=== PATIENT | male | born 1990 | race Caucasian/White ===

== ENCOUNTER 2016-12-31 17:57 | Emergency (ER) | payer OTHER ==
[~2016-12-31] VITALS: Wt 97.5 kg
[~2016-12-31 17:57] MED LIST: MOTRIN400 MG PO; MOTRIN600 MG PO
[2016-12-31 18:12] VITALS: BP 153/75
== END 2016-12-31 20:21 | disposition home or self-care (01) ==
LOC: ED 17:57
DX: S62.304A Unspecified fracture of fourth metacarpal bone, right hand, initial encounter for closed fracture (principal); W18.30XA Fall on same level, unspecified, initial encounter; Y93.89 Activity, other specified; Y92.9 Unspecified place or not applicable; Y99.9 Unspecified external cause status

== ENCOUNTER → 2017-01-03 | Outpatient (CLI) | payer OTHER | END | disposition home or self-care (01) | LOC: ORTHO 02:50 | DX: S62.304D Unspecified fracture of fourth metacarpal bone, right hand, subsequent encounter for fracture with routine healing (principal); X58.XXXD Exposure to other specified factors, subsequent encounter ==

== ENCOUNTER → 2017-02-04 | Outpatient (CLI) | payer OTHER | END | disposition home or self-care (01) | LOC: ORTHO 02:02 | DX: S62.304D Unspecified fracture of fourth metacarpal bone, right hand, subsequent encounter for fracture with routine healing (principal); X58.XXXD Exposure to other specified factors, subsequent encounter ==

== ENCOUNTER 2018-05-15 09:30 | Emergency (ER) | payer OTHER ==
[~2018-05-15] VITALS: Ht 175.2 cm; Wt 102.1 kg
[2018-05-15 09:32] VITALS: BP 142/87
[2018-05-15 10:06] LABS: BASO % 0.2 % (0.0-1.0); EOS % 0.1 % (1.0-4.0); HEMATOCRIT 39.6 % (42.0-52.0); HEMOGLOBIN 14.1 g/dl (14.0-18.0); LYMPH % 10.7 % (27.0-41.0); MEAN CELL VOLUME 88.6 fl (80.0-94.0); MEAN CORPUSCULAR HGB 31.5 pg (27.0-31.0); MEAN CORPUSCULAR HGB CONC 35.6 g/dl (33.0-37.0); MEAN PLATELET VOLUME 10.1 fl (9.6-12.3); MONO # 1.3 10*3/uL (0.1-1.0); MONO % 13.8 % (3.0-9.0); PLATELET COUNT AUTOMATED 143 10*3/uL (130-400); RED BLOOD COUNT 4.47 10*6/uL (4.50-5.90); RED CELL DISTRI WIDTH 11.9 % (0-14.5); WHITE BLOOD COUNT 9.4 10*3/uL (4.8-10.8)
[2018-05-15 10:17] LABS: BUN 12 mg/dl (7-24); CHLORIDE 102 mmol/L (98-107); CREATININE 1.41 mg/dL (0.70-1.30); POTASSIUM 3.5 mmol/L (3.5-5.1); SODIUM 138 mmol/L (136-145)
[2018-05-15] MEDS ORDERED: AMOXICILLIN500 M3 PO (11:37)
== END 2018-05-15 12:57 ==
LOC: ED 09:30
PROVIDERS: Nurse Practitioner Family
DX: L04.0 Acute lymphadenitis of face, head and neck (principal); J02.9 Acute pharyngitis, unspecified; R13.10 Dysphagia, unspecified; Z91.040 Latex allergy status

== ENCOUNTER 2018-10-05 12:13 | Emergency (ER) | payer OTHER ==
[~2018-10-05] VITALS: Ht 167.6 cm; Wt 99.8 kg
[~2018-10-05 12:13] MED LIST changes: -LISINOPRIL10 M1 PO
[2018-10-05] MEDS ORDERED: LISINOPRIL10 M1 PO (12:23)
[2018-10-05 12:44] LABS: BASO % 0.6 % (0.0-1.0); EOS # 0.2 10*3/uL (0.0-0.4); EOS % 3.9 % (1.0-4.0); HEMATOCRIT 44.9 % (42.0-52.0); HEMOGLOBIN 16.1 g/dl (14.0-18.0); LYMPH # 2.1 10*3/uL (1.3-4.4); LYMPH % 40.2 % (27.0-41.0); MEAN CELL VOLUME 88.6 fl (80.0-94.0); MEAN CORPUSCULAR HGB 31.8 pg (27.0-31.0); MEAN CORPUSCULAR HGB CONC 35.9 g/dl (33.0-37.0); MONO # 0.5 10*3/uL (0.1-1.0); MONO % 9.4 % (3.0-9.0); NEUT # 2.4 10*3/uL (2.3-7.9); NEUT % 45.7 % (47.0-73.0); PLATELET COUNT AUTOMATED 194 10*3/uL (130-400); RED BLOOD COUNT 5.07 10*6/uL (4.50-5.90); RED CELL DISTRI WIDTH 12.1 % (0-14.5); WHITE BLOOD COUNT 5.3 10*3/uL (4.8-10.8)
[2018-10-05 13:08] LABS: BUN 20 mg/dl (7-24); CHLORIDE 107 mmol/L (98-107); CREATININE 1.23 mg/dL (0.70-1.30); POTASSIUM 3.9 mmol/L (3.5-5.1); SODIUM 141 mmol/L (136-145)
[2018-10-05 13:09] VITALS: BP 130/70
[2018-10-05 13:11] LABS: TROPONIN I < 0.015 ng/ml (<0.045)
== END 2018-10-05 13:29 | disposition home or self-care (01) ==
LOC: ED 12:13
PROVIDERS: Emergency Medicine
DX: R07.89 Other chest pain (principal); I10 Essential (primary) hypertension; Z79.899 Other long term (current) drug therapy; Z91.040 Latex allergy status

== ENCOUNTER → 2018-10-05 | Outpatient (CLI) | payer OTHER ==
[~2018-10-05] MED LIST changes: +AMOXICILLIN500 M3 PO; +LISINOPRIL10 M1 PO
[2018-10-05 13:18] LABS: ALBUMIN 4.1 gm/dl (3.1-4.5); THYROXINE (T4) TOTAL 10.9 ug/dl (4.5-12.1); TOTAL PROTEIN 7.7 gm/dL (6.4-8.2)
[2018-10-05 13:26] LABS: THYROID STIM HORMONE (HS) 1.29 uIU/ml (0.358-4.75)
[2018-10-08 15:07] LABS: CREATININE, RANDOM URINE 191.9 mg/dL (Not Estab.)
[2018-10-09 10:08] LABS: METANEPH-CREAT RATIO 0.2 (0.0-1.0)
== END | disposition home or self-care (01) ==
LOC: LAB 12:31
PROVIDERS: Pediatrics
DX: I10 Essential (primary) hypertension (principal)

== ENCOUNTER 2022-06-05 19:28 | Emergency (ER) | payer SELFPAY ==
[~2022-06-05] VITALS: Ht 170.1 cm; Wt 77.1 kg
[~2022-06-05 19:28] MED LIST changes: +LISINOPRIL10 M1 PO
[2022-06-05 21:15] LABS: BASO % 0.4 % (0.0-1.0); EOS # 0.2 10*3/uL (0.0-0.4); EOS % 2.7 % (1.0-4.0); HEMATOCRIT 39.4 % (42.0-52.0); LYMPH # 2.1 10*3/uL (1.3-4.4); LYMPH % 25.7 % (27.0-41.0); MEAN CELL VOLUME 90.2 fl (80.0-94.0); MEAN CORPUSCULAR HGB 31.6 pg (27.0-31.0); MONO # 0.6 10*3/uL (0.1-1.0); MONO % 6.7 % (3.0-9.0); NEUT # 5.3 10*3/uL (2.3-7.9); NEUT % 64.4 % (47.0-73.0); PLATELET COUNT AUTOMATED 233 10*3/uL (130-400); RED BLOOD COUNT 4.37 10*6/uL (4.50-5.90); WHITE BLOOD COUNT 8.3 10*3/uL (4.8-10.8)
[2022-06-05 21:32] VITALS: BP 115/49
[2022-06-05 21:33] LABS: ACT PARTIAL THROMBO TIME 27.2 SECONDS (20.0-32.1); ALKALINE PHOSPHATASE 42 U/L (45-117); BUN 14 mg/dl (7-24); CHLORIDE 106 mmol/L (98-107); CREATININE 0.83 mg/dL (0.70-1.30); LIPASE 194 U/L (73-393); POTASSIUM 4.4 mmol/L (3.5-5.1); SGOT/AST 14 IU/L (3-35); SGPT/ALT 22 U/L (12-78); SODIUM 138 mmol/L (136-145); TOTAL PROTEIN 6.7 gm/dL (6.4-8.2)
== END 2022-06-06 00:59 | disposition home or self-care (01) ==
LOC: ED 19:28
PROVIDERS: Family Medicine
DX: R07.89 Other chest pain (principal); R51.9 Headache, unspecified; R53.83 Other fatigue; I10 Essential (primary) hypertension

== ENCOUNTER 2022-07-03 17:14 | Emergency (ER) | payer SELFPAY ==
[~2022-07-03] VITALS: Wt 75.3 kg
[2022-07-03 17:41] VITALS: BP 149/75
[2022-07-04] MEDS ORDERED: TAMIFLU 75MG CA75 MG PO (00:49)
== END 2022-07-04 00:45 | disposition home or self-care (01) ==
LOC: ED 17:14
DX: J10.1 Influenza due to other identified influenza virus with other respiratory manifestations (principal); Z20.822 Contact with and (suspected) exposure to COVID-19; Z79.899 Other long term (current) drug therapy

== ENCOUNTER 2022-11-29 16:23 | Emergency (ER) | payer SELFPAY ==
[~2022-11-29] VITALS: Ht 170.1 cm; Wt 80.3 kg
[~2022-11-29 16:23] MED LIST changes: +TAMIFLU 75MG CA75 MG PO
[2022-11-29 16:43] VITALS: BP 138/66
[2022-11-29] MEDS ORDERED: ONDANSETRON4 MG SL (16:46)
[2022-11-29] MEDS ORDERED: TYLENOL EXTRA500 MG PO (16:46)
[2022-11-29] MEDS ORDERED: DICYCLOMINE HCL10 MG PO (16:46)
== END 2022-11-29 17:04 | disposition home or self-care (01) ==
LOC: ED 16:23
DX: A08.4 Viral intestinal infection, unspecified (principal); Z79.899 Other long term (current) drug therapy

== ENCOUNTER 2023-10-16 17:06 | Emergency (ER) | payer OTHER ==
[~2023-10-16] VITALS: Wt 79.4 kg
[~2023-10-16 17:06] MED LIST changes: +DICYCLOMINE HCL10 MG PO; +ONDANSETRON4 MG SL; +TYLENOL EXTRA500 MG PO
[2023-10-16 17:23] VITALS: BP 138/80
[2023-10-16] MEDS ORDERED: Motrin,Rufen800 MG PO (17:34)
[2023-10-16] MEDS ORDERED: PENICILLIN VK500 MG PO (17:34)
[2023-10-16] MEDS ORDERED: Acetaminophen/Hydrocodone 5 MG/325 MG TABLET PO ONE (17:40)
[2023-10-16] MEDS ORDERED: Ketorolac Tromethamine 60 MG/2 ML VIAL IM ONE (17:40)
[2023-10-16] MEDS ORDERED: PENICILLIN V POTASSIUM 500 MG TAB PO ONE (17:40)
== END 2023-10-16 18:04 | disposition home or self-care (01) ==
LOC: ED 17:06
DX: R60.0 Localized edema (principal); K02.9 Dental caries, unspecified; I10 Essential (primary) hypertension

== ENCOUNTER 2023-11-19 10:11 | Emergency (ER) | payer OTHER ==
[~2023-11-19] VITALS: Ht 170.1 cm; Wt 79.4 kg
[~2023-11-19 10:11] MED LIST changes: +Motrin,Rufen800 MG PO; +PENICILLIN VK500 MG PO
[2023-11-19 10:25] VITALS: BP 145/89
[2023-11-19] MEDS ORDERED: Ketorolac Tromethamine 60 MG/2 ML VIAL IM ONE (10:35)
[2023-11-19] MEDS ORDERED: Dexamethasone Sodium Phospha 20 MG/5 ML VIAL IM ONE (10:35)
[2023-11-19] MEDS ORDERED: IBUPROFEN600 MG PO (10:36)
[2023-11-19] MEDS ORDERED: MELOXICAM15 MG PO (12:02)
[2023-11-19] MEDS ORDERED: PREDNISONE50 MG PO (12:02)
== END 2023-11-19 12:20 | disposition home or self-care (01) ==
LOC: ED 10:11
DX: S43.401A Unspecified sprain of right shoulder joint, initial encounter (principal); I10 Essential (primary) hypertension; X50.0XXA Overexertion from strenuous movement or load, initial encounter; Y93.89 Activity, other specified; Y92.89 Other specified places as the place of occurrence of the external cause; Y99.0 Civilian activity done for income or pay